=== PATIENT | female | born 1960 | race Caucasian/White ===

== ENCOUNTER → 2018-12-24 | Outpatient (CLI) | payer BC ==
--- NOTE | 2018-12-24 22:44 | BD ---
EXAMINATION TYPE: Axial Bone Density DATE OF EXAM: 12/24/2018 COMPARISON: NONE CLINICAL HISTORY: Height: 66 Weight: 166.6 FRAX RISK QUESTIONS: Alcohol (3 or more units per day): no Family History (Parent hip fracture): yes Glucocorticoids (More than 3mos): no (Ex: prednisone, prednisolone, methylprednisolone, dexamethasone, and hydrocortisone). History of Fracture in Adulthood: no Secondary Osteoporosis: 1. Type 1 Diabetes: no 2. Hyperthyroidism: no 3. Menopause before 45: yes 4. Malnutrition: no 5. Chronic liver disease: no Rheumatoid Arthritis: no Current Tobacco Use: no RISK FACTORS HISTORY OF: Family History of Osteoporosis: yes Active: sometimes Diet low in dairy products/other sources of calcium: no Postmenopausal woman: age 40 Lost more than 2 inches in height since high school: no MEDICATIONS: flonase, trazodone Additional History: EXAM MEASUREMENTS: Bone mineral densitometry was performed using the [employer] System. Bone mineral density as measured about the Lumbar spine is: ----- L1-L4(G/cm2): 1.069 T Score Values are as follows: ----- L2: -1.0 ----- L3: -0.1 ----- L4: -1.9 ----- L1-L4: -0.9 Bone mineral density has: decreased -6.1 % since study of: 04.20.2013 Bone mineral density about the R hip (g/cm2): 0.788 Bone mineral density about the L hip (g/cm2): 0.809 T Score values are as follows: -----R Neck: -1.8 -----L Neck: -1.6 -----R Total: -0.9 -----L Total: -0.9 Bone mineral density has: decreased -3.1 % since study of: 04.20.2013 IMPRESSION: Osteopenia (T Score between -2.5 and -1). There is slightly increased risk of fracture and the patient may be considered for treatment. Re-Screen 2-5 years. NOTE: T-SCORE=SD OF THE YOUNG ADULT MEAN.
--- NOTE | 2018-12-25 12:21 | MM ---
Reason for exam: screening (asymptomatic). Last mammogram was performed 5 years and 8 months ago. History: Patient is postmenopausal. Family history of breast cancer in mother at age 71. Benign cyst aspiration of the left breast, January 23, 2005. Benign ultrasound-guided core biopsy of the left breast, January 23, 2005. Benign cyst aspiration of the right breast, November 04, 2001. Took hormonal contraceptives for 4 years. Physical Findings: A clinical breast exam by your physician is recommended on an annual basis and results should be correlated with mammographic findings. MG 3D Screening Mammo W/Cad Bilateral CC and MLO view(s) were taken. Prior study comparison: April 20, 2013, bilateral digital screening mammo w/CAD. November 06, 2011, bilateral digital screening mammo w/CAD. The breast tissue is heterogeneously dense. This may lower the sensitivity of mammography. Stable benign calcifications. There is no discrete abnormality. No significant changes when compared with prior studies. ASSESSMENT: Benign, BI-RAD 2 RECOMMENDATION: Routine screening mammogram of both breasts in 1 year.
== END | disposition home or self-care (01) ==
LOC: RADMAMWWP 14:19
PROVIDERS: ATTEND Internal Medicine
DX: Z12.31 Encounter for screening mammogram for malignant neoplasm of breast (principal); M85.88 Other specified disorders of bone density and structure, other site
CPT/HCPCS: 77063; 77067; 77080

== ENCOUNTER 2019-01-14 07:48 | Day surgery (SDC) | payer BC ==
[2019-01-12 09:13] VITALS: BMI 26.4
[~2019-01-14 07:48] MED LIST: LACTATED RINGERS 1,000 ML IV SCH; LIDOCAINE 1% 20 ML VIAL (10MG/ML) FOR IV START INTRADERMA PRN
[2019-01-14 08:16] VITALS: TEMP 97.8
[2019-01-14] MEDS ORDERED: MIDAZOLAM (PF) 2 MG/2 ML VIAL IV ONE (08:31)
[2019-01-14] MEDS ORDERED: PROPOFOL 10 MG/ML 20 ML VIAL IV ONE (08:52)
[2019-01-14] MEDS ORDERED: IV FLUID CONTINUATION 1,000 ML IV ONE (09:19)
--- NOTE | 2019-01-14 09:19 | P.PCN ---
Date of Procedure: 01/14/19 Procedure(s) Performed: BRIEF HISTORY: Patient is a 58-year-old pleasant female, scheduled for an elective colonoscopy as a part of screening for colorectal neoplasia. PROCEDURE PERFORMED: Colonoscopy with snare polypectomy. PREOPERATIVE DIAGNOSIS: Screening for colon cancer. IV sedation per Anesthesia. PROCEDURE: After informed consent was obtained, the patient, was brought into the endoscopy unit. IV sedation was administered by Anesthesia under continuous monitoring. Digital rectal examination was normal. Initially the Olympus CF-160 flexible video colonoscope was then inserted in the rectum, gradually advanced into the cecum without any difficulty. Careful examination was performed as the scope was gradually being withdrawn. Ileocecal valve and the appendiceal orifice were visualized and appeared normal. Prep was excellent. In the base of the cecum there was a 1 cm broad-based polyp that was removed by snare polypectomy. Mucosa of the cecum, ascending colon, transverse colon, descending colon, sigmoid colon, and rectum appeared normal. Scattered sigmoid diverticulosis seen. Retroflexion was performed in the rectum and small internal hemorrhoids were seen. The patient tolerated the procedure well. IMPRESSION: 1 cm broad-based cecal polyp by the appendiceal orifice status post snare polypectomy Scattered sigmoid diverticula seen Small internal hemorrhoids RECOMMENDATIONS: Findings of this examination were discussed with the patient as well as a family. She was advised to follow with the biopsy results and if the biopsy shows adenoma, she can have a repeat colonoscopy in 3-5 years
[2019-01-14 09:22] VITALS: PULSE 74; RESP 18
[2019-01-14 09:37] VITALS: BP 124/72
== END 2019-01-14 10:02 | disposition home or self-care (01) ==
LOC: ORWHC2ENDO 07:48
PROVIDERS: ATTEND Internal Medicine Gastroenterology
DX: Z12.11 Encounter for screening for malignant neoplasm of colon (principal); D12.0 Benign neoplasm of cecum; K64.8 Other hemorrhoids; K57.30 Diverticulosis of large intestine without perforation or abscess without bleeding; Z88.2 Allergy status to sulfonamides; Z79.1 Long term (current) use of non-steroidal anti-inflammatories (NSAID); Z79.899 Other long term (current) drug therapy; Z98.890 Other specified postprocedural states
CPT/HCPCS: 45385; 88305

== ENCOUNTER → 2019-01-26 | Outpatient (CLI) | payer BC ==
--- NOTE | 2019-01-26 17:22 | CT ---
EXAMINATION TYPE: CT sinus wo con DATE OF EXAM: 01/26/2019 COMPARISON: None HISTORY: Chronic sinusitis CT DLP: 544 mGycm CONTRAST: 0 mL of Isovue 300 The paranasal sinuses are examined in the axial plane at 2 mm thick sections. Reconstructed images i n the coronal plane were obtained. There is dental amalgam scatter artifact There is opacification of the left maxillary sinus. Right maxillary sinus is patent. The ethmoid air cells are clear. The sphenoid sinuses are clear. The frontal sinuses are clear. The septum is evaluated. There is septal deviation to the left. The left ostiomeatal unit is obstructed. The right ostiomeatal unit is patent. There is a right bk bullosa IMPRESSIONS: 1. Opacification of the left maxillary sinus. Correlate for chronic left maxillary sinusitis.
== END | disposition home or self-care (01) ==
LOC: RADCTMAIN 11:43
PROVIDERS: ATTEND Otolaryngology
DX: J34.89 Other specified disorders of nose and nasal sinuses (principal); J32.0 Chronic maxillary sinusitis
CPT/HCPCS: 70486

== ENCOUNTER 2019-03-04 10:16 | Day surgery (SDC) | payer BC ==
[2019-02-26 14:45] VITALS: BMI 26.6
[~2019-03-04 10:16] MED LIST changes: +DEXAMETHASONE SOD PHOSPHATE 10 MG/ML 1 ML VIAL IV ONE; +DEXAMETHASONE SOD PHOSPHATE 4 MG/ML 1 ML VIAL IV ONE; +FAMOTIDINE 20 MG/2 ML VIAL IV ONE; +ONDANSETRON 4 MG/2 ML VIAL IVP ONE; +SCOPOLAMINE 1.5MG/72HR PATCH TRANSDERM ONE
[2019-03-04] MEDS: OXYMETAZOLINE 0.05% NASL SPRAY 1 SPRAY BOTTLE NASAL ONE ×6 (11:05→11:21)
[2019-03-04 11:06] VITALS: TEMP 98
[2019-03-04] MEDS ORDERED: ROCURONIUM BROMIDE 10 MG/ML 10 ML VIAL IV ONE (13:05)
[2019-03-04] MEDS ORDERED: PROPOFOL 10 MG/ML 20 ML VIAL IV ONE (13:05)
[2019-03-04] MEDS ORDERED: fentaNYL (PF) 50 MCG/ML 2 ML AMP ONE (13:05)
[2019-03-04] MEDS ORDERED: MIDAZOLAM 2 MG/2 ML VIAL ONE (13:05)
[2019-03-04] MEDS ORDERED: SUCCINYLCHOLINE CHLORIDE 100 MG/5 ML SYR IV ONE (13:05)
[2019-03-04] MEDS ORDERED: LIDOCAINE 1% INJ 10MG/ML (20 ML MDV) ONE (13:05)
[2019-03-04] MEDS ORDERED: LIDOCAINE 1%-EPI 1:100,000 20 ML VIAL SUBMUCOSAL ONE ×2 (13:07→13:22)
[2019-03-04] MEDS ORDERED: LACTATED RINGERS 1,000 ML IV ONE ×3 (13:13→14:54)
[2019-03-04] MEDS ORDERED: BACITRACIN OINT 1 EACH PACKET TOPICAL ONE (13:41)
--- NOTE | 2019-03-04 14:05 | P.OP ---
Date of Procedure: 03/04/19 Preoperative Diagnosis: Deviated nasal septum Left maxillary sinusitis Postoperative Diagnosis: Same Procedure(s) Performed: Septoplasty Left-sided endoscopic sinus surgery including left maxillary antrostomy with removal of tissue from the maxillary sinus Anesthesia: LINDA Surgeon: Shen Wheeler Estimated Blood Loss (ml): 5 Pathology: other (Nasal septal bone and cartilage and sinus contents) Condition: stable Disposition: PACU Indications for Procedure: The patient was brought in the operative suite and placed in a supine position. Patient underwent induction of general anesthesia with oral endotracheal intubation without difficulty. The orbits were in the operating field for monitoring throughout the case and the computed tomography scan was on the computer screen for review throughout the case. 1% lidocaine with 1 1000 epinephrine was infused submucosally both sides nasal septum as well as lateral nasal wall on the left as well as at the anterior tip of the middle turbinate on the left. This was left to work for 7 minutes vasoconstrictive effect. A left hemitransfixion incision was made with the mucoperichondrial decompressive flap the left elevated. Bony cartilaginous junction was disarticulated and a mucoperiosteal flap on the right was elevated. Bony nasal septal deformities were removed Ana Luisa forceps. An inferior cartilaginous strip was removed leaving a full 1.5 cm caudal strut. Checking intranasally this corrected the nasoseptal deformities and the hemitransfixion incision was closed with a running 4-0 chromic suture. Full 0 to endoscopic examination is performed bilaterally. Proceeding on the left the middle turbinate was medialized with a [employer] elevator. The maxillary ostium was located with a ballpoint probe and infundibulotomy was performed followed by uncinectomy. There was purulence in the maxillary sinus which was c ultured. The maxillary antrostomy was enlarged at the expense of the anterior and posterior fontanelle taking care anteriorly not to injure the lacrimal bone. The maxillary sinus was evaluated with 30 endoscope and thickened mucosa was removed at the ostium with up-biting Blakesley forceps and giraffe forceps. The sinus was irrigated with sterile normal saline and suctioned clear with a curved suction. Once this was completed there was good hemostasis noted and therefore no packing was placed or nasal dressings as it was desired for this sinus to be able to aerate without obstruction. Bilateral Alexander airway splints coated bacitracin ointment were placed in the nasal cavities and sutured trans-septally with a 4-0 nylon suture. Patient was suctioned in oral gastric fashion and was allowed to emerge from general anesthesia having tolerated procedure well was extubated in the operating suite and transferred to postop recovery area in satisfactory. Operative Findings: Nasal septum deviated to the left with obstructive left ostiomeatal complex with purulence throughout the maxillary sinus on the left as well as marked mucosal thickening. Description of Procedure: The description of the procedure is in the indications portion already-please refer to this section for the procedure
[2019-03-04] MEDS: HYDROmorphone 0.5 MG/0.5 ML SYRINGE IVP PRN ×2 (14:10→14:21)
[2019-03-04 15:18] VITALS: RESP 18
[2019-03-04] MEDS ORDERED: HYDROcodone/APAP 5-325MG 1 EACH TAB PO ONE (16:19)
[2019-03-04 16:35] VITALS: BP 128/79; PULSE 77
== END 2019-03-04 17:00 | disposition home or self-care (01) ==
LOC: OR 10:16
PROVIDERS: ATTEND Otolaryngology
DX: J34.2 Deviated nasal septum (principal); J32.0 Chronic maxillary sinusitis; J01.00 Acute maxillary sinusitis, unspecified; J34.89 Other specified disorders of nose and nasal sinuses; J45.909 Unspecified asthma, uncomplicated; M81.0 Age-related osteoporosis without current pathological fracture; Z87.891 Personal history of nicotine dependence; Z79.1 Long term (current) use of non-steroidal anti-inflammatories (NSAID); Z79.899 Other long term (current) drug therapy; Z88.2 Allergy status to sulfonamides; Z91.011 Allergy to milk products; Z82.49 Family history of ischemic heart disease and other diseases of the circulatory system; Z80.3 Family history of malignant neoplasm of breast; Z83.49 Family history of other endocrine, nutritional and metabolic diseases; Z82.61 Family history of arthritis; Z82.62 Family history of osteoporosis; Z82.0 Family history of epilepsy and other diseases of the nervous system
CPT/HCPCS: 30520; 31267; 88305; 88300; 87070; 87205; 87075; J2250; J1100; J2405; J0690; J2001; J3010; J0330; J2704; J1170

== ENCOUNTER → 2020-05-31 | Outpatient (CLI) | payer BC ==
--- NOTE | 2020-05-31 15:37 | US ---
EXAMINATION TYPE: US kidneys/renal and bladder DATE OF EXAM: 05/31/2020 COMPARISON: NONE CLINICAL HISTORY: N18.9 Chronic kidney disease, uti, hematuria, left flank pain EXAM MEASUREMENTS: Right Kidney: 9.7 x 3.4 x 4.3 cm Left Kidney: 9.9 x 4.3 x 4.5 cm Right Kidney: No hydronephrosis or masses seen Left Kidney: No hydronephrosis or masses seen Bladder: wnl. Sonolucent. Bilateral Jets seen: yes IMPRESSION: 1. Normal renal ultrasound
== END | disposition home or self-care (01) ==
LOC: RADUSWWP 14:51
PROVIDERS: ATTEND Internal Medicine
DX: N18.9 Chronic kidney disease, unspecified (principal)
CPT/HCPCS: 76770

== ENCOUNTER → 2020-08-09 | Outpatient (CLI) | payer BC ==
--- NOTE | 2020-08-11 14:53 | MM ---
Reason for exam: screening (asymptomatic). Last mammogram was performed 1 year and 7 months ago. History: Patient is postmenopausal. Family history of breast cancer in mother at age 71. Benign cyst aspiration of the left breast, January 23, 2005. Benign ultrasound-guided core biopsy of the left breast, January 23, 2005. Benign cyst aspiration of the right breast, November 04, 2001. Took hormonal contraceptives for 4 years. Physical Findings: A clinical breast exam by your physician is recommended on an annual basis and results should be correlated with mammographic findings. MG 3D Screening Mammo W/Cad Bilateral CC and MLO view(s) were taken. Prior study comparison: December 24, 2018, bilateral MG 3d screening mammo w/cad. April 20, 2013, bilateral digital screening mammo w/CAD. The breast tissue is heterogeneously dense. This may lower the sensitivity of mammography. There are benign appearing round calcifications in the left breast. Previous mammotome biopsy in the left breast. Asymmetric breast tissue in the left breast, stable medially. There is no discrete abnormality. ASSESSMENT: Benign, BI-RAD 2 RECOMMENDATION: Routine screening mammogram of both breasts in 1 year.
== END | disposition home or self-care (01) ==
LOC: RADMAMWWP 07:44
PROVIDERS: ATTEND Internal Medicine
DX: Z12.31 Encounter for screening mammogram for malignant neoplasm of breast (principal)
CPT/HCPCS: 77063; 77067

== ENCOUNTER → 2021-01-09 | Outpatient (CLI) | payer BC ==
--- NOTE | 2021-01-09 14:25 | XR ---
EXAMINATION TYPE: XR Hip Complete LT DATE OF EXAM: 01/09/2021 COMPARISON: NONE HISTORY: Pain TECHNIQUE: 2 views submitted FINDINGS: There is no evidence of erosive change or acute fracture. Calcifications in the pelvis noted. SI joints within normal limits. IMPRESSION: 1. No evidence of acute fracture or dislocation.
== END | disposition home or self-care (01) ==
LOC: RADXRMAIN 13:59
PROVIDERS: ATTEND Internal Medicine
DX: M25.552 Pain in left hip (principal)
CPT/HCPCS: 73502

== ENCOUNTER → 2021-05-26 | Outpatient (CLI) | payer BC ==
--- NOTE | 2021-05-26 13:09 | US ---
EXAMINATION TYPE: US pelvis complete transvag DATE OF EXAM: 05/26/2021 COMPARISON: NONE CLINICAL HISTORY: R10.2 pelvic pain. pelvic discomfort during recent PAP smear TECHNIQUE: Transvaginal (TV) and Transabdominal (TA) . Transabdominal sonographic images of the pel vis were acquired. Transvaginal sonographic images were medically necessary to better assess the fol lowing anatomy: ovaries Date of LMP: unknown EXAM MEASUREMENTS: Uterus: 5.3 x 2.2 x 3.9 cm Endometrial Stripe: 0.2 cm Right Ovary: unable to visualize Left Ovary: unable to visualize 1. Uterus: Anteverted slightly heterogeneous 2. Endometrium: wnl 3. Right Ovary: Obscured by overlying bowel gas 4. Left Ovary: Obscured by overlying bowel gas 5. Bilateral Adnexa: prominent vascularity right adnexa 6. Posterior cul-de-sac: wnl IMPRESSION: 1. Ovaries were not visualized. Correlate for pelvic varices. 2. Nonspecific diffuse heterogeneity of the uterus. No discrete fibroid changes.
== END | disposition home or self-care (01) ==
LOC: RADUSWWP 12:25
PROVIDERS: ATTEND Internal Medicine
DX: R10.2 Pelvic and perineal pain (principal)
CPT/HCPCS: 76830; 76856

== ENCOUNTER → 2021-11-22 | Outpatient (CLI) | payer BC ==
--- NOTE | 2021-11-22 10:31 | XR ---
EXAMINATION TYPE: XR shoulder complete RT DATE OF EXAM: 11/22/2021 CLINICAL HISTORY: pain TECHNIQUE: Three views of the right shoulder are obtained. COMPARISON: None FINDINGS: There is no acute fracture/dislocation evident. The acromioclavicular and glenohumeral bev int spaces appear within normal limits. The visualized ribs are intact and unremarkable. IMPRESSION: 1. There is no acute fracture or dislocation. ICD 10 NO FRACTURE, INITIAL EVALUATION
--- NOTE | 2021-11-22 10:34 | XR ---
EXAMINATION TYPE: XR cervical spine w flex/ext DATE OF EXAM: 11/22/2021 TECHNIQUE: Frontal, lateral, oblique, swimmers, and open mouth view of the cervical spine are obtaine d. Additional flexion and extension views obtained. HISTORY: M47.12, M25.511 COMPARISON: None FINDINGS: The cervical spine is visualized in its entirety from C1 thru the top of T1 level, it is s atisfactory in alignment without evidence of acute fracture or dislocation. Moderate degenerative dis c space narrowing extending from C3-4 through C6-7. Ventral and dorsal spondylosis. Alignment is stab le at neutral flexion and extension. The pre-vertebral soft tissue appears within normal limits. The C1-C2 articulation is within normal limits on the open mouth view. The oblique images are within no rmal limits. IMPRESSION: Degenerative changes as noted.
== END | disposition home or self-care (01) ==
LOC: RADXRMAIN 10:05
PROVIDERS: ATTEND Internal Medicine
DX: M47.12 Other spondylosis with myelopathy, cervical region (principal); M50.30 Other cervical disc degeneration, unspecified cervical region; M25.511 Pain in right shoulder
CPT/HCPCS: 72052

== ENCOUNTER → 2022-06-07 | Outpatient (CLI) | payer BC ==
--- NOTE | 2022-06-08 08:48 | MR ---
EXAMINATION TYPE: MR cervical spine wo con DATE OF EXAM: 06/07/2022 COMPARISON: None HISTORY: Neck pain , burning into crys upper extremities CONTRAST: Performed utilizing 0 mL intravenous Gadavist gadolinium contrast. TECHNIQUE: Multiplanar multiecho imaging on a 3.0 Rosy magnet is performed through the cervical spin e. FINDINGS: The craniovertebral junction is normal. Vertebral body alignment is normal. No definite signal abnormality within the spinal cord is evident. C7-T1: No focal disc herniation or significant disc bulge is evident. No spinal canal stenosis or n eural foraminal stenosis is present. C6-7: Mild disc bulge with mild anterior thecal sac compression. No cord contact is evident. No spina l canal stenosis or neural foraminal stenosis present.. C5-6: Central broad-based subligamentous disc herniation is present with moderate anterior thecal sac compression. As comes in close approximation spinal cord. Some left paracentral impression on the sp inal cord may be present. AP spinal canal stenosis 0.7 cm is present. Neural foramen are patent.. C4-5: Broadbase disc bulge is present with moderate anterior thecal sac compression. No cord contact is evident. No spinal canal stenosis or neural foraminal stenosis present.. C3-4: Minimal disc bulge has mild anterior thecal sac compression. No cord contact or spinal canal st enosis. Neural foramen are patent.. C2-3: No focal disc herniation or significant disc bulge is evident. No spinal canal stenosis or skye ral foraminal stenosis is present. IMPRESSIONS: 1. At C5-6 a Broad-based central subligamentous disc herniation with moderate anterior thecal sac com pression has some cord contact and mild deformity in the left paracentral region. The discs contribut ing to AP spinal canal stenosis at C5-6 level. 2. Disc bulging C4-5 with moderate anterior thecal sac compression without cord contact or stenosis. 3. Mild disc bulging with mild anterior thecal sac compression at C6-7 without stenosis or cord conta ct.
== END | disposition home or self-care (01) ==
LOC: RADMRIMAIN 12:32
PROVIDERS: ATTEND Internal Medicine
DX: M47.12 Other spondylosis with myelopathy, cervical region (principal)
CPT/HCPCS: 72141

== ENCOUNTER → 2022-07-12 | Outpatient (CLI) | payer BC ==
[2022-07-12 16:42] LABS: Partial Thromboplastin Time 22.3 sec (22.0-30.0); Prothrombin Time 10.6 sec (9.0-12.0)
[2022-07-12 23:19] LABS: African American GFR (CKD) 60.8 (60.0-200.0); Albumin 4.5 g/dL (3.8-4.9); Albumin/Globulin Ratio 1.86 (1.60-3.17); Anion Gap 11.5 mmol/L (10.00-18.00); BUN/Creat Ratio 14.32 Ratio (12.00-20.00); Blood Urea Nitrogen 15.9 mg/dL (9.0-27.0); Calcium 9.7 mg/dL (8.7-10.3); Globulin 2.4 g/dL (1.6-3.3); Non-African American GFR(CKD) 52.4 (60.0-200.0); Potassium 4.5 mmol/L (3.5-5.5); Total Bilirubin 0.3 mg/dL (0.30-1.20)
[2022-07-12 23:25] LABS: Appearance,Urine Turbid (Clear); Bacteria,Urine None Seen /HPF (None Seen); Bilirubin,Urine Negative (Negative); Blood,Urine Negative (Negative); Color,Urine Yellow (Yellow); Ketones,Urine Trace mg/dL (Negative); Nitrite,Urine Negative (Negative); PH, Urine 5.5 (5.0-8.0); Specific Gravity,Urine 1.027 (1.001-1.030); Urobilinogen,Urine 0.2 (0.2,1.0)
[2022-07-12 23:33] LABS: Basophils # (A) 0.03 X 10*3/uL (0.00-0.10); Basophils % (A) 0.6 %; Eosinophils # (A) 0.03 X 10*3/uL (0.04-0.35); Eosinophils % (A) 0.6 %; HCT 37.2 % (37.2-46.3); HGB 11.9 g/dL (12.0-15.0); Immature Grans, Automated 0.2 %; Lymphocytes # (A) 1.59 X 10*3/uL (0.90-5.00); Lymphocytes % (A) 31.3 %; MCH 32.2 pg (27.0-32.0); MCV 100.8 fL (80.0-97.0); Mean Platelet Volume 10.2 fL (9.5-12.2); Monocytes # (A) 0.44 X 10*3/uL (0.20-1.00); Monocytes % (A) 8.7 %; NRBC Per 100 WBC 0 /100 WBCS (0.0-0.0); Neutrophils # (A) 2.98 X 10*3/uL (1.80-7.70); Neutrophils % (A) 58.6 %; Platelet Count 286 X 10*3/uL (140-440); RBC 3.69 X 10*6/uL (4.10-5.20); RDW 12.9 % (11.5-14.5); WBC 5.08 X 10*3/uL (4.50-10.00)
--- NOTE | 2022-07-13 07:31 | XR ---
EXAMINATION TYPE: XR chest 2V DATE OF EXAM: 07/12/2022 4:33 PM COMPARISON: Chest radiographs from 08/08/2022 TECHNIQUE: XR chest 2V Frontal and lateral views of the chest. CLINICAL INDICATION:Female, 62 years old with history of [id number] FOR OTHER PREPROCEDURAL EXAM INATION; FINDINGS: Lungs/Pleura: There is no evidence of pleural effusion, focal consolidation, or pneumothorax. Pulmonary vascularity: Unremarkable. Heart/mediastinum: Cardiomediastinal silhouette is unremarkable. Musculoskeletal: No acute osseous pathology. IMPRESSION: No acute cardiopulmonary disease/process.
== END | disposition home or self-care (01) ==
LOC: RADXRMAIN 15:39
PROVIDERS: ATTEND Physician Assistant Surgical
DX: Z01.818 Encounter for other preprocedural examination (principal); U07.1 COVID-19
CPT/HCPCS: 86900; 86901; 80053; 85025; 85610; 85730; 86850; 81001; 87070; 83036; 71046; U0003; U0005

== ENCOUNTER → 2022-09-12 | Outpatient (CLI) | payer BC ==
--- NOTE | 2022-09-12 10:22 | MM ---
Reason for Exam: Clinical finding. Last mammogram was performed 2 year(s) and 1 month(s) ago. Indicated Problems: Pain of the left side (Global) for 2 Month(s) : LAT SIDE. Patient History: Menarche at age 12. First Full-Term at age 16. Postmenopausal. Patient used Hormonal Contraceptives for 4 years. 01/23/2005, Benign Ultrasound-Guided Core Biopsy on the left side. 01/23/2005, Benign Cyst Aspiration on the left side. 11/04/2001, Benign Cyst Aspiration on the right side. Mother had breast cancer, age 71. Risk Values: Farideh 5 year model risk: 3.2%. NCI Lifetime model risk: 12.6%. Prior Study Comparison: 11/06/2011 Bilateral Screening Mammogram, [facility]. 04/20/2013 Bilateral Screening Mammogram, [facility]. 12/24/2018 Bilateral Screening Mammogram, [facility]. 08/09/2020 Bilateral Screening Mammogram, [facility]. Tissue Density: The breast tissue is heterogeneously dense. This may lower the sensitivity of mammography. Findings: Analyzed By CAD. There are scattered calcifications present bilaterally. Focal asymmetry in the upper outer right breast is stable. Core marker is within the left breast. No suspicious abnormality within the outer left breast to account for breast pain. Clinical management recommended. Overall Assessment: Benign, BI-RAD 2 Management: Screening Mammogram of both breasts in 1 year. A clinical breast exam by your physician is recommended on an annual basis and results should be correlated with mammographic findings. This exam should not preclude additional follow-up of suspicious palpable abnormalities. Results were given to the patient verbally at the time of exam. Electronically signed and approved by: Chandu Curtis D.O. Radiologis
--- NOTE | 2022-09-12 12:26 | BD ---
EXAMINATION TYPE: Axial Bone Density DATE OF EXAM: 09/12/2022 COMPARISON: 12-24-2018 CLINICAL HISTORY: 62 years year old Female. ICD-10 CODE: M81.0 AGE-RELATED OSTEOPOROSIS Height: 65.5IN Weight: 162LB FRAX RISK QUESTIONS: Family History (Parent hip fracture): YES Secondary Osteoporosis: 3. Menopause before 45: YES RISK FACTORS HISTORY OF: Surgery to Spine: YES CERVICAL When: JUL 2022 Family History of Osteoporosis: YES Active: YES Postmenopausal woman: YES If Premenopausal, do you have irregular periods: Lost more than 2 inches in height since high school: YES MEDICATIONS: Additional Medications: PAIN MEDS, BP MED, CALCIUM WITH VITAMIN D, MUSCLE RELAXER Additional History: EXAM MEASUREMENTS: Bone mineral densitometry was performed using the [employer] System. Bone mineral density as measured about the Lumbar spine is: ----- L1-L4(G/cm2): 1.036 T Score Values are as follows: ----- L1: -0.9 ----- L2: -1.0 ----- L3: -0.9 ----- L4: -2.0 ----- L1-L4: -1.2 Bone mineral density has: Decreased -3.5% since study of: 12-24-2018 Bone mineral density about the R hip (g/cm2): 0.858 Bone mineral density about the L hip (g/cm2): 0.860 T Score values are as follows: -----R Neck: -2.0 -----L Neck: -1.9 -----R Total: -1.2 -----L Total: -1.2 Bone mineral density has: Decreased -3.9% since study of: 12-24-2018 FRAX%s: The graph provided illustrates a 19.9% chance for a major osteoporotic fx and a 1.6% chance f or the hips probability for fx in 10 years time. IMPRESSION: Osteopenia (T Score between -2.5 and -1). There is slightly increased risk of fracture and the patient may be considered for treatment. Re-Screen 2-5 years. NOTE: T-SCORE=SD OF THE YOUNG ADULT MEAN.
== END | disposition home or self-care (01) ==
LOC: RADMAMWWP 09:35
PROVIDERS: ATTEND Internal Medicine
DX: M81.0 Age-related osteoporosis without current pathological fracture (principal); N64.4 Mastodynia; M85.89 Other specified disorders of bone density and structure, multiple sites; Z78.0 Asymptomatic menopausal state; Z80.3 Family history of malignant neoplasm of breast
CPT/HCPCS: 77062; 77066; 77080

== ENCOUNTER → 2022-09-12 | Outpatient (CLI) | payer BC ==
--- NOTE | 2022-09-12 11:10 | XR ---
EXAMINATION TYPE: XR cervical spine w flex/ext DATE OF EXAM: 09/12/2022 COMPARISON: 11/22/2021 HISTORY: Cervical disorder post fusion TECHNIQUE: 5 view cervical spine with additional flexion and extension views FINDINGS: Note is made of bilateral carotid bifurcation region calcifications. This can be further ev aluated with ultrasound. There is an anterior cervical fusion present C4-C6. Disc spacers are present at these levels. Odontoi d is limited due to overlying occiput. Vertebral body alignment appears preserved through flexion and extension and neutral positions. Mild C6-C7 right foraminal narrowing is present. Moderate left C4-5 C5-6 foraminal narrowing is present. Some mild left foraminal narrowing at C6-7 may be present as we ll. Correlate with radicular symptoms. IMPRESSION: 1. Anterior fusion C4-C6. 2. Left foraminal stenosis C4-5 C5-6 and milder right C 6-7 foraminal narrowing. 3. Probable carotid vascular calcifications, consider follow-up with carotid Doppler ultrasound.
== END | disposition home or self-care (01) ==
LOC: RADXRWHC 09:40
PROVIDERS: ATTEND Physician Assistant Surgical
DX: M99.71 Connective tissue and disc stenosis of intervertebral foramina of cervical region (principal); M50.00 Cervical disc disorder with myelopathy, unspecified cervical region; Z98.1 Arthrodesis status
CPT/HCPCS: 72052

== ENCOUNTER → 2022-09-21 | Outpatient (CLI) | payer BC ==
--- NOTE | 2022-09-22 07:20 | US ---
EXAMINATION TYPE: US carotid duplex BILAT DATE OF EXAM: 09/21/2022 COMPARISON: NONE CLINICAL HISTORY: R42 DIZZINESS, G45.9 TRANSIENT CEREBRAL ISCHEMIC ATTACK. Dizziness TECHNIQUE: Carotid duplex ultrasound examination. Indirect Doppler criteria was utilized. FINDINGS: EXAM MEASUREMENTS: RIGHT: Peak Systolic Velocity (PSV) cm/sec ----- Right CCA: 102 ----- Right ICA: 122 ----- Right ECA: 116 ICA/CCA ratio: 1.2 RIGHT: End Diastole cm/sec ----- Right CCA: 27.2 ----- Right ICA: 43.5 ----- Right ECA: 16.3 LEFT: Peak Systolic Velocity (PSV) cm/sec ----- Left CCA: 134 ----- Left ICA: 115 ----- Left ECA: 139 ICA/CCA ratio: 0.9 LEFT: End Diastole cm/sec ----- Left CCA: 33.4 ----- Left ICA: 42.9 ----- Left ECA: 20.6 VERTEBRALS (direction of flow): Right Vertebral: Antegrade Left Vertebral: Antegrade Rhythm: Normal ROASTER SUPERVISOR NOTES: No significant stenosis seen IMPRESSION: Less than 50% stenosis of the bilateral carotid bifurcations. Criteria for Assigning % of Stenosis / Diameter reduction (Estimation based on the indirect measurements of the internal carotid artery velocities (ICA PSV). 1. Normal (no stenosis)=ICA PSV < 125 cm/s: ratio < 2.0: ICA EDV<40 cm/s. 2. Less than 50% stenosis=ICA PSV < 125 cm/s: ratio < 2.0: ICA EDV<40 cm/s. 3. 50 to 69% stenosis=ICA PSV of 125 to 230 cm/s: ration 2.0 ? 4.0: ICA EDV 40-100 cm/s. 4. Greater than 70% stenosis to near occlusion= ICA PSV > 230 cm/s: ratio > 4.0: ICA EDV > 100 cm/s. 5. Near occlusion= ICA PSV velocities may be low or undetectable: variable ratio and ICA EDV. 6. Total occlusion=unable to detect flow.
--- NOTE | 2022-09-22 16:19 | MR ---
EXAMINATION TYPE: MR brain wo/w con DATE OF EXAM: 09/21/2022 5:00 PM CLINICAL INDICATION:Female, 62 years old with history of R42 DIZZINESS, G45.9 TRANSIENT CEREBRAL ISCH EMIC A; COMPARISON: None TECHNIQUE: Multi planar, multi sequence imaging was performed through the brain including: T1, T2, In version recovery, susceptibility weighted imaging and gradient echo imaging and Diffusion weighted im aging. The patient was then given intravenous contrast and multi planar, T1 fat-saturation images wer e obtained. IV Contrast: 7 cc Gadavist FINDINGS: The kramer-white junctions, ventricular system, basal cisterns appear unremarkable. Diffusion-weighted imaging shows no evidence of restricted diffusion to suggest acute/subacute infarct. Intracranial art erial flow voids are maintained. Midline structures show no abnormality. Scattered foci of high T2 si gnal intensity are seen within the periventricular white matter. The susceptibility weighted images d o not reveal any evidence for micro-hemorrhage. After administration of gadolinium, no abnormal enhan cement is seen. The bone marrow signal is within normal limits. Paranasal sinuses and mastoid air cells: Mild scattered paranasal sinus disease. Visualized orbits: Orbital contents are intact. IMPRESSION: 1. No evidence of intracranial mass, acute/subacute infarct, or abnormal enhancement. 2. Nonspecific white matter changes, likely related to small vessel ischemic disease
== END | disposition home or self-care (01) ==
LOC: RADUSWWP 15:41
PROVIDERS: ATTEND Internal Medicine
DX: I65.23 Occlusion and stenosis of bilateral carotid arteries (principal); R90.82 White matter disease, unspecified; R42 Dizziness and giddiness; Z86.73 Personal history of transient ischemic attack (TIA), and cerebral infarction without residual deficits
CPT/HCPCS: 93880; 70553; A9585

== ENCOUNTER → 2023-09-19 | Outpatient (CLI) | payer MEDICARE ==
--- NOTE | 2023-09-21 15:23 | MM ---
Reason for Exam: Screening (asymptomatic). Last screening mammogram was performed 12 month(s) ago. Patient History: Menarche at age 12. First Full-Term at age 16. Postmenopausal. Patient used Hormonal Contraceptives for 4 years. 01/23/2005, Benign Ultrasound-Guided Core Biopsy on the left side. 01/23/2005, Benign Cyst Aspiration on the left side. 11/04/2001, Benign Cyst Aspiration on the right side. Mother had breast cancer, age 71. Risk Values: Farideh 5 year model risk: 3.3%. NCI Lifetime model risk: 12.2%. Prior Study Comparison: 12/24/2018 Bilateral Screening Mammogram, [facility]. 08/09/2020 Bilateral Screening Mammogram, [facility]. 09/12/2022 Bilateral MG 3D diag mammo w/cad VINAYAK, [facility]. Tissue Density: The breast tissue is heterogeneously dense. This may lower the sensitivity of mammography. Findings: Analyzed By CAD. The pattern is symmetrical and stable. No significant interval changes. Benign round calcifications within the left breast. A core marker is within the left breast. No suspicious groups of microcalcifications, spiculated or lobular masses, architectural distortion or other secondary signs of malignancy are mammographically apparent. Overall Assessment: Benign, BI-RAD 2 Management: Screening Mammogram of both breasts in 1 year. A negative mammogram report should not preclude additional follow up of suspicious palpable abnormalities. Patient should continue monthly self breast exam. A clinical breast exam by your physician is recommended on an annual basis and results should be correlated with mammographic findings. Electronically signed and approved by: Chandu Curtis D.O. Radiologis
== END | disposition home or self-care (01) ==
LOC: RADMAMWWP 07:31
PROVIDERS: ATTEND Internal Medicine
DX: Z12.31 Encounter for screening mammogram for malignant neoplasm of breast (principal); Z80.3 Family history of malignant neoplasm of breast; Z78.0 Asymptomatic menopausal state
CPT/HCPCS: 77063; 77067

== ENCOUNTER → 2023-10-08 | Outpatient (CLI) | payer MEDICARE ==
--- NOTE | 2023-10-08 11:56 | CTL ---
EXAMINATION TYPE: CT Low Dose Lung DATE OF EXAM ORDERED: 10/08/2023 HISTORY: Z12.2 ENCNTR SCREEN FOR MALIGNANT NEOPLASM OF RESP. 32 pack-year history, quit smoking 15 ye ars ago. Lung cancer screening CT DLP: 70.[address] CTDI: 1.9 mGy Automated exposure control for dose reduction was used. SCREENING VISIT: For screening visit COMPARISON: No direct comparisons TECHNIQUE: Low dose computed tomography scan was performed through the chest at 1 mm thick sections a nd reconstructed images in multiple planes at 1 mm and [address] DIAGNOSTIC QUALITY: Satisfactory FINDINGS: LUNG NODULES: Right upper lobe solid 9 mm pulmonary nodule (series 6, image 15). Left lower lobe 3 mm groundglass nodule (series 6, image 39). LUNGS: COPD: Severity: None Fibrosis: Severity: None Lymph nodes: None Other findings: None RIGHT PLEURAL SPACE: Effusion: None Calcification: None Thickening: None Pneumothorax: None LEFT PLEURAL SPACE: Effusion: None Calcification: None Thickening: None Pneumothorax: None HEART: Heart Size: Normal Coronary Calcification: Small Pericardial Effusion: None OTHER FINDINGS: Upper abdomen: None Bony thorax: None Supraclavicular region: None Other: None IMPRESSION: There are 2 pulmonary nodules with largest within the right upper lobe measuring up to [address] LUNG RAD AND CT CHEST RECOMMENDATION: Lung-Rad 4A Suspicious: Follow-up 3 month LDCT or PET/CT may be used when there is a > 8 mm solid component. S Modifier (other clinically significant findings): None
== END | disposition home or self-care (01) ==
LOC: RADCTMAIN 11:13
PROVIDERS: ATTEND Internal Medicine
DX: Z12.2 Encounter for screening for malignant neoplasm of respiratory organs (principal); R91.8 Other nonspecific abnormal finding of lung field; Z87.891 Personal history of nicotine dependence
CPT/HCPCS: 71271

== ENCOUNTER → 2023-11-28 | Outpatient (CLI) | payer MEDICARE ==
--- NOTE | 2023-12-01 01:33 | PE ---
EXAMINATION TYPE: PET CT fusion skull to thigh DATE OF EXAM: 11/28/2023 COMPARISON: Low-dose lung screening CT October 08, 2023 HISTORY: Solitary pulmonary nodule, abnormal CT TECHNIQUE: Following the intravenous administration of 10.18 mCi of F-18 FDG, whole body images are performed from the skull base to the midthigh. Images are reviewed on the computer in the coronal, a xial, and sagittal planes. Reconstructed rotating images are created on independent workstation and reviewed on the computer. A localization and attenuation correction CT is performed in conjunction with the PET scan. Blood glucose level equals 91 SCAN: Initial Scan FINDINGS: SKULL BASE AND NECK: No areas of abnormal hypermetabolic uptake. CHEST, MEDIASTINUM, AND HILAR REGION: Persistent 9 x 6 mm right upper lobe pulmonary nodule axial bayron ge 62 does not show abnormal hypermetabolic uptake. No areas of abnormal hypermetabolic uptake in the thorax. ABDOMEN AND PELVIS: No hypermetabolic adrenal masses. Normal excretion. No areas of suspicious abnorm al hypermetabolic uptake. OSSEOUS STRUCTURES: No areas of suspicious abnormal hypermetabolic uptake. OTHER CT: Small sized thyroid gland. Mild coronary artery calcification is present. Surgical change t o the cervical spine is noted. IMPRESSION: No abnormal hypermetabolic uptake to suggest malignancy. Advise follow-up CT in 6-12 gerardo hs time to assess stability of the pulmonary nodule.
== END | disposition home or self-care (01) ==
LOC: RADPETMAIN 10:30
PROVIDERS: ATTEND Internal Medicine
DX: R91.1 Solitary pulmonary nodule (principal)
CPT/HCPCS: 78815; A9552

== ENCOUNTER → 2024-06-04 | Outpatient (CLI) | payer MEDICARE ==
[2024-06-04 11:06] LABS: African American GFR (CKD) 73 (>60 ml/min/1.73 sqM); Blood Urea Nitrogen 13 mg/dL (7-17); Non-African American GFR(CKD) 63 (>60 ml/min/1.73 sqM)
--- NOTE | 2024-06-04 12:01 | CT ---
EXAMINATION TYPE: CT chest w con DATE OF EXAM: 06/04/2024 COMPARISON: 10/08/2023 HISTORY: SOLITARY PULMONARY NODULE RT UPPER LOBE CT DLP: 243.20 mGycm Automated exposure control for dose reduction was used. TECHNIQUE: CT scan of the chest is performed with IV Contrast, patient injected with 100 mL of Isovue 300. MIP Images are created on CT scanner and reviewed. 3D reconstructed images are created on an independent workstation and reviewed. FINDINGS: The 90 10 mm nodule in the right upper lobe is stable. The 3 mm groundglass nodule in the left lower lobe is stable. No new or suspicious lung mass or nodule is seen. There is no airspace consolidation or abnormal interstitial density. There is no pleural effusion, pleural thickening or pneumothorax. The heart is normal in size. The great vessels are unremarkable. There is no mediastinal, hilar or ax illary adenopathy. Limited scanning through the upper abdomen reveals no gross abnormality. No focal osseous lesion is seen. IMPRESSION: 1. Stable bilateral pulmonary nodules in the right upper lobe and left lower lobe as described. 2. No acute cardiopulmonary disease. 3. If this is a high risk patient and an additional 6 month follow-up CT is recommended to confirm st ability. [facility], , 06/04/2024 11:58 AM
== END | disposition home or self-care (01) ==
LOC: RADCTMAIN 09:59
PROVIDERS: ATTEND Internal Medicine
DX: R91.8 Other nonspecific abnormal finding of lung field (principal)
CPT/HCPCS: 36415; 71260; 82565; 84520

== ENCOUNTER → 2024-10-08 | Outpatient (CLI) | payer MEDICARE ==
--- NOTE | 2024-10-09 07:42 | MM ---
Reason for Exam: Screening (asymptomatic). Last screening mammogram was performed 12 month(s) ago. Patient History: Menarche at age 12. First Full-Term at age 16. Postmenopausal. Patient used Hormonal Contraceptives for 4 years. 01/23/2005, Benign Ultrasound-Guided Core Biopsy on the left side. 01/23/2005, Benign Cyst Aspiration on the left side. 11/04/2001, Benign Cyst Aspiration on the right side. Mother had breast cancer, age 71. Risk Values: Fairdeh 5 year model risk: 3.4%. NCI Lifetime model risk: 11.8%. Prior Study Comparison: 08/09/2020 Bilateral Screening Mammogram, [facility]. 09/12/2022 Bilateral MG 3D diag mammo w/cad VINAYAK, [facility]. 09/19/2023 Bilateral MG 3D screening mammo w/cad, [facility]. Tissue Density: The breasts are heterogeneously dense, which may obscure small masses. Findings: Analyzed By CAD. Left breast biopsy clip. Right breast: There is no suspicious group of microcalcifications or new suspicious mass. Left breast: There is no suspicious group of microcalcifications or new suspicious mass. Overall Assessment: Negative, BI-RAD 1 Management: Screening Mammogram of both breasts in [address] [facility] will attempt to contact patient to return for supplemental views and ultrasound if indicated. Patient should continue monthly self-breast exams. A clinical breast exam by your physician is recommended on an annual basis. This exam should not preclude additional follow-up of suspicious palpable abnormalities. Note on Farideh scores and lifetime risk: 1. A Farideh score greater than 3% is considered moderate risk. If this is the case, consider specialist referral to assess eligibility for a risk reducing agent. 2. If overall lifetime risk for the development of breast cancer is 20% or higher, the patient may qualify for future screening with alternating mammogram and breast MRI. [facility], , 10/09/2024 7:39 AM. Electronically signed and approved by: Orlando Shrestha DO
== END | disposition home or self-care (01) ==
LOC: RADMAMWWP 14:34
PROVIDERS: ATTEND Internal Medicine
DX: Z12.31 Encounter for screening mammogram for malignant neoplasm of breast (principal); R92.333 Mammographic heterogeneous density, bilateral breasts; Z78.0 Asymptomatic menopausal state; Z80.3 Family history of malignant neoplasm of breast
CPT/HCPCS: 77063; 77067

== ENCOUNTER → 2024-11-12 | Outpatient (CLI) | payer MEDICARE ==
--- NOTE | 2024-11-12 16:54 | US ---
EXAMINATION TYPE: US carotid duplex BILAT DATE OF EXAM: 11/12/2024 COMPARISON: NONE CLINICAL INDICATION: Female, 64 years old with history of [id number] CAROTID STENOSIS; dizziness, syncope Additional History: .... TECHNIQUE: Grayscale, color Doppler and spectral Doppler evaluation of the bilateral carotid systems and vertebral arteries. Indirect Doppler criteria was utilized. FINDINGS: EXAM MEASUREMENTS: RIGHT: Peak Systolic Velocity (PSV) cm/sec ----- Right CCA: 138 ----- Right ICA: 134 ----- Right ECA: 109 ICA/CCA ratio: 1.0 RIGHT: End Diastole cm/sec ----- Right CCA: 38.1 ----- Right ICA: 48 ----- Right ECA: 18 LEFT: Peak Systolic Velocity (PSV) cm/sec ----- Left CCA: 119 ----- Left ICA: 105 ----- Left ECA: 157 ICA/CCA ratio: 0.9 LEFT: End Diastole cm/sec ----- Left CCA: 35.2 ----- Left ICA: 25.5 ----- Left ECA: 21.3 VERTEBRALS (direction of flow): Right Vertebral: Antegrade Left Vertebral: Antegrade Rhythm: Normal EARLY LEARNING TEACHER NOTES: No significant velocity elevations or stenosis seen, mild plaque bilateral carotid bulbs Color Doppler imaging shows patency with blood flow throughout the carotid artery. Spectral waveforms are within normal limits. IMPRESSION: No evidence of hemodynamically significant stenosis. Criteria for Assigning % of Stenosis / Diameter reduction (Estimation based on the indirect measurements of the internal carotid artery velocities (ICA PSV). 1. Normal (no stenosis)=ICA PSV < 125 cm/s: ratio < 2.0: ICA EDV<40 cm/s. 2. Less than 50% stenosis=ICA PSV < 125 cm/s: ratio < 2.0: ICA EDV<40 cm/s. 3. 50 to 69% stenosis=ICA PSV of 125 to 230 cm/s: ration 2.0 ? 4.0: ICA EDV 40-100 cm/s. 4. Greater than 70% stenosis to near occlusion= ICA PSV > 230 cm/s: ratio > 4.0: ICA EDV > 100 cm/s. 5. Near occlusion= ICA PSV velocities may be low or undetectable: variable ratio and ICA EDV. 6. Total occlusion=unable to detect flow. [facility], , 11/12/2024 4:52 PM
--- NOTE | 2024-11-13 08:22 | BD ---
EXAMINATION TYPE: Axial Bone Density DATE OF EXAM: 11/12/2024 CLINICAL HISTORY: 64 years old Female. ICD-10 CODE: M85.851 OSTEOPENIA , Additional History: Height: 66 Weight: 172.4 FRAX RISK QUESTIONS: Alcohol (3 or more units per day): no Family History (Parent hip fracture): yes Glucocorticoids (More than 3mos): no (Ex: prednisone, prednisolone, methylprednisolone, dexamethasone, and hydrocortisone). History of Fracture in Adulthood: yes Secondary Osteoporosis: 1. Type 1 Diabetes: no 2. Hyperthyroidism: no 3. Menopause before 45: yes 4. Malnutrition: no 5. Chronic liver disease: no Rheumatoid Arthritis: no Current Tobacco Use: no RISK FACTORS HISTORY OF: Spine Fracture: c- spine Surgery to Spine/Hip(right/left)/Wrist (right/left): no EXAM MEASUREMENTS: Bone mineral densitometry was performed using the [employer] System. Bone mineral density as measured about the Lumbar spine is: ----- L1-L4(G/cm2): 1.030 T Score Values are as follows: ----- L1: -0.9 ----- L2: -0.9 ----- L3: -1.0 ----- L4: -2.2 ----- L1-L4: -1.3 Z Score Values are as follows: ----- L1: 0.3 ----- L2: 0.3 ----- L3: 0.2 ----- L4: -1.0 ----- L1-L4: -0.1 Bone mineral density has: decreased -0.6 % since study of: 09.12.2022 Bone mineral density about the R hip (g/cm2): 0.848 Bone mineral density about the L hip (g/cm2): 0.862 T Score values are as follows: -----R Neck: -1.8 -----L Neck: -1.9 -----R Total: -1.3 -----L Total: -1.2 Z Score values are as follows: -----R Neck: -0.6 -----L Neck: -0.6 -----R Total: -0.3 -----L Total: -0.2 Bone mineral density has: decreased -0.5 % since study of: 1.4.2022 FRAX%s: The graph provided illustrates a 29.3% chance for a major osteoporotic fx and a 3.5% chance f or the hips probability for fx in 10 years time. IMPRESSION: Osteopenia (T Score between -2.5 and -1). There is slightly increased risk of fracture and the patient may be considered for treatment. Re-Screen 2-5 years. NOTE: T-SCORE=SD OF THE YOUNG ADULT MEAN. [facility], , 11/13/2024 8:20 AM
--- NOTE | 2024-11-13 09:56 | CA ---
Transthoracic Echo Report Name: Carol Cheung Age: 64 Gender: F : 1960 Exam Date: 11/12/2024 16:54 Exam Location: [facility] Ht (in): 66 Wt (lb): 171 Ordering Physician: Michelle Smith MD Attending/Referring Phys: Dispatch Specialist Natividad Bonilla RDCS Procedure CPT: Indications: I34.0 Cardiac Hx: Technical Quality: Good Contrast 1: Total Dose (mL): Contrast 2: Total Dose (mL): MEASUREMENTS (Male / Female) Normal Values 2D ECHO LV Diastolic Diameter PLAX 4.3 cm 4.2 - 5.9 / 3.9 - 5.3 cm LV Systolic Diameter PLAX 2.6 cm IVS Diastolic Thickness 0.7 cm 0.6 - 1.0 / 0.6 - 0.9 cm LVPW Diastolic Thickness 0.8 cm 0.6 - 1.0 / 0.6 - 0.9 cm LV Relative Wall Thickness 0.3 LVOT Diameter 2.1 cm LV Diastolic Volume MOD BP 104.7 cm??? 67 - 155 / 56 - 104 cm??? LV Systolic Volume MOD BP 41.6 cm??? 22 - 58 / 19 - 49 cm??? LV Ejection Fraction MOD BP 60.3 % >= 55 % LV Cardiac Index MOD BP 2996.0 cm???/min???m??? LV Diastolic Volume MOD 4C 101.6 cm??? LV Systolic Volume MOD 4C 44.8 cm??? LV Ejection Fraction MOD 4C 55.9 % LV Cardiac Index MOD 4C 2697.1 cm???/min???m??? LV Diastolic Length 4C 8.2 cm LV Systolic Length 4C 6.9 cm LV Diastolic Volume MOD 2C 99.8 cm??? LV Systolic Volume MOD 2C 32.6 cm??? LV Ejection Fraction MOD 2C 67.3 % LV Cardiac Index MOD 2C 3185.0 cm???/min???m??? LV Diastolic Length 2C 7.6 cm LV Systolic Length 2C 5.9 cm LA Volume 48.1 cm??? 18 - 58 / 22 - 52 cm??? LA Volume Index 25.0 cm???/m??? 16 - 28 cm???/m??? DOPPLER AV Peak Velocity 137.7 cm/s AV Peak Gradient 7.6 mmHg AV Mean Velocity 93.1 cm/s AV Mean Gradient 3.9 mmHg AV Velocity Time Integral 29.1 cm LVOT Peak Velocity 89.7 cm/s LVOT Peak Gradient 3.2 mmHg LVOT Velocity Time Integral 19.1 cm LVOT Stroke Volume 64.6 cm??? LVOT Stroke Volume Index 34.5 ml/m??? LVOT Cardiac Index 3064.0 cm???/min???m??? AV Area Cont Eq vti 2.2 cm??? AV Area Cont Eq pk 2.2 cm??? MV Area PHT 5.1 cm??? Mitral E Point Velocity 60.4 cm/s Mitral A Point Velocity 73.0 cm/s Mitral E to A Ratio 0.8 MV Deceleration Time 148.4 ms TR Peak Velocity 256.5 cm/s TR Peak Gradient 26.3 mmHg Right Atrial Pressure 5.0 mmHg Pulmonary Artery Systolic Pressu 31.3 mmHg Right Ventricular Systolic Press 31.3 mmHg PV Peak Velocity 132.7 cm/s PV Peak Gradient 7.0 mmHg FINDINGS Left Ventricle Left ventricular ejection fraction is estimated at 55-60 %. Left ventricular cavity size normal. Left ventricular wall thickness normal. No obvious regional wall motion abnormalities. Right Ventricle Normal right ventricular size and function. Right ventricular systolic pressure within normal limits. Right Atrium Normal right atrial size. Left Atrium Normal left atrial size. Mitral Valve Structurally normal mitral valve. No evidence for mitral valve prolapse. No mitral stenosis. Mild mitral regurgitation. Aortic Valve Trileaflet aortic valve. No aortic valve stenosis or regurgitation. Tricuspid Valve Structurally normal tricuspid valve. No tricuspid stenosis. Trace tricuspid regurgitation. Pulmonic Valve Structurally normal pulmonic valve. No pulmonic stenosis. Trace pulmonic regurgitation. Pericardium No pericardial effusion. Aorta Normal size aortic root and proximal ascending aorta. CONCLUSIONS Diagnosis mitral valve disease Preserved LV size and function, mild mitral regurgitation Thickened pericardium Previewed by: Dr. Naman Richards MD (Electronically Signed) Final Date: 13 November 2024 09:56
== END | disposition home or self-care (01) ==
LOC: RADBDWWP 15:46
PROVIDERS: ATTEND Internal Medicine
DX: I34.0 Nonrheumatic mitral (valve) insufficiency (principal); I65.23 Occlusion and stenosis of bilateral carotid arteries; M85.89 Other specified disorders of bone density and structure, multiple sites
CPT/HCPCS: 77080; 93306; 93880